=== PATIENT | female | born 1990 | race Caucasian/White ===

== ENCOUNTER 2016-10-01 07:18 | Emergency (ER) | payer OTHER ==
[~2016-10-01] VITALS: Wt 84.0 kg
[~2016-10-01 07:18] MED LIST: DICY10CA60 PO; HYDR200T5 PO; LISI20TA11 PO; MYCO500T13 PO; ONDA4TAB35 PO; ONDA4TAB8 PO; PRED1TAB2 PO
[2016-10-01] MEDS ORDERED: MORP60TA37 PO (08:09)
[2016-10-01] MEDS ORDERED: OXYC5CAP17 PO (08:09)
--- NOTE | 2016-10-01 09:09 | ERD ---
DATE OF SERVICE: HISTORY OF PRESENT ILLNESS: The patient is a 26-year-old female coming in for a medication refill. The patient states that she was diagnosed with avascular necrosis. She is having a difficult time finding a surgeon to do hip replacement. She is currently running out of her pain medication and is requesting a refill. She takes oxycodone 20 mg q.i.d. and morphine 60 mg b.i.d. She states that s he has a pain management appointment on 10/22/2016, and her doctor is currently out of town. She shrestha s no new pains or traumatic injuries. Denies fevers. Has mild numbness and tingling down her legs, which has been consistent. Denies any change in urination or bowel movement. Has full control of her bowels and urination. REVIEW OF SYSTEMS: A 12-point review of systems was done. Refer to HPI for positives, all other sy stems negative. PHYSICAL EXAMINATION VITAL SIGNS: Temperature is 98.3, pulse is 84, blood pressure is 142/88, respiratory rate 22, O2 sa t 99% on room air. Pain intensity is 0/10. GENERAL: The patient is well-appearing, well-nourished, no acute distress. HEENT: Atraumatic. Conjunctivae are pink. Pupils equal, round, and reactive to light. There is no s cleral icterus. Tympanic membranes clear bilaterally. Oropharynx clear. No nystagmus or photophobia . CHEST: Clear to auscultation bilaterally. There are no rales, wheezes or rhonchi. HEART: Regular rate and rhythm. No murmurs, clicks, rubs or gallops. No S3 or S4. ABDOMEN: Soft, nontender and nondistended. Good bowel sounds. No rebound or guarding. No gross alejandro tonitis. No gross organomegaly or masses. No Heck sign or McBurney point tenderness. EXTREMITIES: Equal pulses bilaterally. There is no peripheral clubbing, cyanosis or edema. No focal swelling or erythema. Full range of motion. Grossly neurovascularly intact. SKIN: There is no apparent rash or petechia. The skin is warm and dry. DIAGNOSES: 1. Medication refill. 2. History of avascular necrosis. MEDICAL DECISION MAKING: I have low suspicion for acute avascular necrotic emergency at this time. I have low suspicion for neuro deficit worsening at this time. I feel the patient is stable for ou tpatient management and will be given information about [facility] and other pain management s pecialists. The patient will be told to return if symptoms change or worsen. DISCHARGE: The patient is discharged stable. Patient is given a prescription for oxycodone and mor phine and told to follow up with primary care within 1 to 2 days for reevaluation. The patient was told if symptoms progress or worsen to return to the ER. All other questions answered at time [facility] di [facility]. Discharge summary given at the time of departure. Patient understood and complied with pl an. Dictated By: HUMZA BOO for PILI SMITH/HOWARD Conf#: [id number] DID#: [id number]
== END 2016-10-01 08:20 | disposition home or self-care (01) ==
LOC: FTE 07:18
DX: Z76.0 Encounter for issue of repeat prescription (principal); M87.08 Idiopathic aseptic necrosis of bone, other site
CPT/HCPCS: 99281